=== PATIENT | female | born 1980 | race Caucasian/White ===

== ENCOUNTER 2020-08-24 09:23 | Emergency (ER) | payer OTHER ==
[~2020-08-24] VITALS: Ht 167.6 cm; Wt 80.0 kg
[2020-08-24 09:37] VITALS: BP 121/96
--- NOTE | 2020-08-24 09:55 | PHYS DOC ---
Past History Past Medical History: Asthma, Other Additional Past Medical Histor: seasonal allergies Past Surgical History: Cholecystectomy, , Hysterectomy, Other Additional Past Surgical Histo: bariatric surgery Alcohol Use: Rarely General Adult EDM: Chief Complaint: WRIST PAIN HPI: HPI: 40-year-old female presents with right wrist pain. The patient was working at the [employer] when a 35 pound box shifted and fell onto her right wrist and proximal thumb. She has pain in that area at this time. She denies decreased sensation. She has no other injuries or complaints at this time. Review of Systems: Review of Systems: Constitutional: Denies fever or chills Eyes: Denies change in visual acuity HENT: Denies nasal congestion or sore throat Respiratory: Denies cough or shortness of breath Cardiovascular: Denies chest pain or edema GI: Denies abdominal pain, nausea, vomiting, bloody stools or diarrhea : Denies dysuria Musculoskeletal: Denies back pain or joint pain Integument: Denies rash Neurologic: Denies headache, focal weakness or sensory changes Endocrine: Denies polyuria or polydipsia Lymphatic: Denies swollen glands Psychiatric: Denies depression or anxiety Allergies: Allergies: Allergies Coded Allergies Type Severity Reaction Last Updated Verified aspirin Allergy Unknown 08/24/20 Yes iodine Allergy Unknown 08/24/20 Yes Physical Exam: PE: Constitutional: Well developed, well nourished, no acute distress, non-toxic appearance. [] HENT: Normocephalic, atraumatic, bilateral external ears normal, oropharynx moist, no oral exudates, nose normal. [] Eyes: PERRLA, EOMI, conjunctiva normal, no discharge. [] Neck: Normal range of motion, no tenderness, supple, no stridor. [] Cardiovascular:Heart rate regular rhythm, no murmur [] Lungs & Thorax: Bilateral breath sounds clear to auscultation [] Abdomen: Bowel sounds normal, soft, no tenderness, no masses, no pulsatile masses. [] Skin: Warm, dry, no erythema, no rash. [] Back: No tenderness, no CVA tenderness. [] Extremities: No tenderness, no cyanosis, no clubbing, ROM intact, no edema. [] Neurologic: Alert and oriented X 3, normal motor function, normal sensory function, no focal deficits noted. [] Psychologic: Affect normal, judgement normal, mood normal. [] Current Patient Data: Vital Signs: Vital Signs Date Time Temp Pulse Resp B/P (MAP) Pulse Ox O2 Delivery O2 Flow Rate FiO2 08/24/20 09:37 97.7 66 16 121/96 (104) 100 Room Air EKG: EKG: [] Radiology/Procedures: Radiology/Procedures: [] Heart Score: C/O Chest Pain: N/A Risk Factors: Risk Factors: DM, Current or recent (<one month) smoker, HTN, HLP, family history of CAD, obesity. Risk Scores: Score 0 - 3: 2.5% MACE over next 6 weeks - Discharge Home Score 4 - 6: 20.3% MACE over next 6 weeks - Admit for Clinical Observation Score 7 - 10: 72.7% MACE over next 6 weeks - Early Invasive Strategies Course & Med Decision Making: Course & Med Decision Making Pertinent Labs and Imaging studies reviewed. (See chart for details) The patient's x-ray is negative for fracture or other acute findings. This appears to be a wrist sprain. The patient is stable for discharge at this time. [] Dragon Disclaimer: Dragon Disclaimer: This electronic medical record was generated, in whole or in part, using a voice recognition dictation system. Departure Departure: Impression: Primary Impression: Unspecified sprain of right wrist, initial encounter Disposition: HOME / SELF CARE / HOMELESS Condition: STABLE Referrals: NON,STAFF (PCP) Patient Instructions: Wrist Sprain with [facility] GUILHERME VILLAFUERTE DO Aug 24, 2020 09:55
--- NOTE | 2020-08-24 10:03 | RAD ---
Three-view right wrist dated 08/24/2020. No comparison available. Clinical data indication: Pain after injury. FINDINGS: 3 views the right wrist show normal bony alignment. No displaced fracture. No acute osseous or articu lar abnormality. No periostitis or bone destruction. IMPRESSION: No acute findings. Electronically signed by: Saad Chavira MD (08/24/2020 10:00 AM) JENN[facility]ER
== END 2020-08-24 10:45 | disposition home or self-care (01) ==
LOC: ER 09:23
DX: S63.501A Unspecified sprain of right wrist, initial encounter (principal); J45.909 Unspecified asthma, uncomplicated; Z90.49 Acquired absence of other specified parts of digestive tract; Z90.710 Acquired absence of both cervix and uterus; Z88.6 Allergy status to analgesic agent; W18.09XA Striking against other object with subsequent fall, initial encounter; Y93.89 Activity, other specified; Y92.89 Other specified places as the place of occurrence of the external cause; Y99.8 Other external cause status
CPT/HCPCS: 29125; 73110; 99283-25

== ENCOUNTER 2020-12-19 16:20 | Emergency (ER) | payer OTHER ==
[~2020-12-19] VITALS: Ht 167.6 cm; Wt 81.0 kg
[2020-12-19 16:25] VITALS: BP 97/57
[2020-12-19] MEDS ORDERED: FAMOTIDINE 20 MG/2 ML VIAL IVP ONE (16:45)
[2020-12-19 16:57] LABS: BASO % 0 % (0-3); EOS % 1 % (0-3); HEMATOCRIT 37.8 % (36.0-47.0); HEMOGLOBIN 13.1 g/dL (12.0-15.5); LYMPH # 1.2 x10^3/uL (1.0-4.8); LYMPH % 40 % (24-48); MEAN CORPUSCULAR HEMOGLOBIN 31 pg (25-35); MEAN CORPUSCULAR HGB CONC 35 g/dL (31-37); MEAN CORPUSCULAR VOLUME 91 fL (79-100); MONO # 0.4 x10^3/uL (0.0-1.1); MONO % 14 % (0-9); NEUT # 1.4 x10^3uL (1.8-7.7); NEUT % 45 % (31-73); PLATELET COUNT 156 x10^3/uL (140-400); RED BLOOD COUNT 4.17 x10^6/uL (3.50-5.40); RED CELL DISTRIBUTION WIDTH 12.2 % (11.5-14.5); WHITE BLOOD COUNT 3.1 x10^3/uL (4.0-11.0)
--- NOTE | 2020-12-19 16:57 | PHYS DOC ---
Past History Past Medical History: Asthma, Other Additional Past Medical Histor: seasonal allergies Past Surgical History: Cholecystectomy, , Hysterectomy, Other Additional Past Surgical Histo: bariatric surgery Alcohol Use: Rarely General Adult EDM: Chief Complaint: CHEST PAIN HPI: HPI: Patient is a [age] year old [sex] who presents with [] Review of Systems: Review of Systems: Constitutional: Denies fever or chills Eyes: Denies redness or eye pain HENT: Denies nasal congestion or sore throat Respiratory: Denies cough or shortness of breath Cardiovascular: Denies chest pain or palpitations GI: Denies abdominal pain, nausea, or vomiting : Denies dysuria or hematuria Musculoskeletal: Denies back pain or joint pain Integument: Denies rash or skin lesions Neurologic: Denies headache, focal weakness or sensory changes Complete systems were reviewed and found to be within normal limits, except as documented in this note. Current Medications: Current Meds: Current Medications Medications (Trade) Dose Ordered Sig/Ramona Start Time Stop Time Status Last Admin Dose Admin Dexamethasone Sodium Phosphate (Decadron) 10 mg 1X ONCE 12/19/20 16:45 12/19/20 16:48 DC Diphenhydramine HCl (Benadryl) 50 mg 1X ONCE 12/19/20 16:45 12/19/20 16:48 DC Famotidine (Pepcid Vial) 20 mg 1X ONCE 12/19/20 16:45 12/19/20 16:48 DC Info (Do NOT chart on this entry -- for MONITORING) 1 each PRN DAILY PRN 12/19/20 17:00 12/21/20 16:59 Iohexol (Omnipaque 350 Mg/ml) 100 ml 1X ONCE 12/19/20 17:00 12/19/20 17:01 Ketorolac Tromethamine (Toradol 15mg Vial) 15 mg 1X ONCE 12/19/20 16:45 12/19/20 16:46 DC Ondansetron HCl (Zofran) 4 mg 1X ONCE 12/19/20 16:45 12/19/20 16:46 DC Sodium Chloride 1,000 ml @ 1,000 mls/hr Q1H 12/19/20 16:45 12/19/20 17:44 Allergies: Allergies: Allergies Coded Allergies Type Severity Reaction Last Updated Verified aspirin Allergy Unknown 08/24/20 Yes iodine Allergy Unknown Hives 12/19/20 Yes Physical Exam: PE: Constitutional: Well developed, well nourished, no acute distress, non-toxic appearance HENT: Normocephalic, atraumatic Eyes: PERRL, EOMI, conjunctiva normal, no discharge Neck: Normal range of motion, no tenderness, supple Lungs & Thorax: No respiratory distress, equal chest rise and fall Abdomen: Soft, no tenderness Skin: Warm, dry, no erythema, no rash Back: No tenderness, no CVA tenderness Extremities: No tenderness, ROM intact, no edema Neurologic: Alert and oriented X 3, normal motor function, normal sensory function, no focal deficits noted Psychologic: Affect normal, judgment normal Current Patient Data: Vital Signs: Vital Signs Date Time Temp Pulse Resp B/P (MAP) Pulse Ox O2 Delivery O2 Flow Rate FiO2 12/19/20 16:25 98.4 77 24 97/57 (70) 97 EKG: EKG: @1626 NSR at 73bpm, NO ST elevation, QRS 88ms, QT/QTc 378/420ms @1749 Sinus bradycardia at 56bpm, NO ST elevation, QRS 94ms, QT/QTc 424/412ms Radiology/Procedures: Radiology/Procedures: PROCEDURE: CT ANGIO CHEST W ABD PEL W/ Study: CT angiography of the chest. CT abdomen/pelvis with contrast Indication: Shortness of air. Abdominal pain. Nausea and vomiting. Comparison: None. Technique: Helical CT imaging performed of the chest, abdomen and pelvis after the intravenous administration of 100 cc Omnipaque 350 contrast. Sagittal and coronal 3D MIP reconstructions were obtained of the chest per angiography protocol. One or more of the following individualized dose reduction techniques were utilized for this examination: 1. Automated exposure control 2. Adjustment of the mA and/or kV according to patient size 3. Use of iterative reconstruction technique. Findings: Chest: No main, lobar or segmental pulmonary embolism. Main pulmonary artery caliber is within normal limits. No aortic aneurysm or dissection. No CT manifestations of right heart strain. Nonmasslike with the soft tissue density at the anterior mediastinum with intermixed fat most consistent with residual or rebound thymic tissue. No lymphadenopathy by size criteria. Normal volume pericardial fluid. Mild atelectasis. No consolidation. A few small pulmonary nodules such as right middle lobe on image 93 series 5 measuring 3.5 mm and abutting the right major fissure on image 66 series 5 measuring 3 mm. Pleural-based nodular focus posteriorly at the right lower lobe, image 16 series 5, measuring 4 mm. Patent central airways. No pleural effusion. Unremarkable thyroid and axilla. No acute or aggressive osseous process. Abdomen/pelvis: The liver is within normal limits. Shabana configuration of the right hepatic lobe. Absent gallbladder. Nondilated biliary tree. Unremarkable pancreas and adrenal glands. Mild enlargement of the spleen measuring just over 13 cm AP. Symmetric renal parenchymal enhancement. Nondilated collecting system. Bladder wall thickness is within normal limits. No significant abnormality of the reproductive organs considering patient age and presumed premenopausal state. Small amount of free pelvic fluid measuring simple density is typically physiologic. Mild volume well-formed stool within the distal colon. There is some incompletely formed stool within the colon more proximally. The appendix is normal, image 113 series 9. A few segments of small bowel are mildly prominent measuring around 3 cm such as at the left upper quadrant on image 48 series 9, but there is no significant wall thickening or transitioning to collapse. No pneumatosis. Sequela of bariatric surgery. No complication is identified. Likely the bowel is partially assessed without positive oral contrast. Patent central portal veins and superior mesenteric vein. Nonaneurysmal aorta. No lymphadenopathy. No pneumoperitoneum. Mild arthrosis at the hips and involving the lower lumbar facet joints. Impression: 1. No pulmonary embolism or other acute abnormality throughout the chest. 2. No acute abnormality seen below the diaphragm. 3. A few small pulmonary nodules measuring 4 mm or less. Per Fleischner guidelines, no dedicated follow-up is needed unless otherwise clinically indicated. 4. Mild prominence of the spleen. 5. Small amount of free fluid measuring simple density within the pelvis typically physiologic given patient age. No significant CT finding of the reproductive organs. Electronically signed by: TAJ LÓPEZ MD (12/19/2020 6:16 PM) [facility] Heart Score: C/O Chest Pain: Yes HEART Score for Chest Pain: HEART Score for Chest Pain Response (Comments) Value History Slighlty/Non-Suspicious 0 ECG Normal 0 Age < 45 0 Risk Factors No Risk Factors 0 Troponin < Normal Limit 0 Total 0 Risk Factors: Risk Factors: DM, Current or recent (<one month) smoker, HTN, HLP, family history of CAD, obesity. Risk Scores: Score 0 - 3: 2.5% MACE over next 6 weeks - Discharge Home Score 4 - 6: 20.3% MACE over next 6 weeks - Admit for Clinical Observation Score 7 - 10: 72.7% MACE over next 6 weeks - Early Invasive Strategies Course & Med Decision Making: Course & Med Decision Making Pertinent Labs and Imaging studies reviewed. (See chart for details) [] Dragon Disclaimer: Dragon Disclaimer: This electronic medical record was generated, in whole or in part, using a voice recognition dictation system. Departure Departure: Impression: Primary Impression: Chest pain Qualified Codes: R07.9 - Chest pain, unspecified Additional Impressions: Nausea & vomiting Qualified Codes: R11.2 - Nausea with vomiting, unspecified History of COVID-19 Incidental pulmonary nodule Disposition: HOME / SELF CARE / HOMELESS Condition: STABLE Referrals: BEATRIS KING DO (PCP) Patient Instructions: Chest Pain (Nonspecific), [id number], Clear Liquid Diet, [id number], Nausea and Vomiting, [id number], Pulmonary Nodule, Easy- to-Read Additional Instructions: Increase hydration. Give CT report to PCP for future re-evaluation of your pulmonary nodules. Scripts Hyoscyamine Sulfate (LEVSIN-SL) 0.125 Mg Tab.subl 0.125 MG SL Q4-6HRS PRN for PAIN, #14 TAB Prov: ERICKA SANTIAGO DO 12/19/20 Prednisone (PREDNISONE) 20 Mg Tablet 1 TAB PO DAILY for Allergen, #8 TAB Start this medication tomorrow, 12/20/20 Prov: ERICKA SANTIAGO DO 12/19/20 Famotidine (PEPCID) 20 Mg Tablet 1 TAB PO BID for Gastritis, #10 TAB Prov: ERICKA SANTIAGO DO 12/19/20 Ondansetron (ONDANSETRON ODT) 4 Mg Tab.rapdis 1 TAB PO PRN Q6-8HRS PRN for NAUSEA, #16 TAB Prov: ERICKA SANTIAGO DO 12/19/20 ERICKA SANTIAGO DO Dec 19, 2020 16:56
[2020-12-19] MEDS ORDERED: CONTRAST GIVEN. MC PRN (17:00)
[2020-12-19] MEDS: IV NORMAL SALINE 1,000ML 1,000 ML IV SCH (17:02)
[2020-12-19] MEDS: ONDANSETRON PF 4 MG/2 ML VIAL. IVP ONE (17:06)
[2020-12-19 17:08] LABS: CREATININE 0.7 mg/dL (0.6-1.0); GFR 92.7; POTASSIUM 3.5 mmol/L (3.5-5.1)
[2020-12-19] MEDS: KETOROLAC 15 MG/ML VIAL. IVP ONE (17:08)
[2020-12-19] MEDS: diphenhydrAMINE 50 MG/ML VIAL IVP ONE (17:11)
[2020-12-19] MEDS: FAMOTIDINE 20 MG/2 ML VIAL IVP ONE (17:15)
[2020-12-19] MEDS: DEXAMETHASONE SOD PHOS 10 MG/ML VIAL. IVP ONE (17:15)
[2020-12-19 17:24] LABS: ALBUMIN 3.9 g/dL (3.4-5.0); ALBUMIN/GLOBULIN RATIO 1.1 (1.0-1.7); TOTAL PROTEIN 7.3 g/dL (6.4-8.2)
[2020-12-19] MEDS: IOHEXOL 350 MG/ML 100 ML VIAL. IV ONE (17:30)
--- NOTE | 2020-12-19 18:19 | RAD ---
Study: CT angiography of the chest. CT abdomen/pelvis with contrast Indication: Shortness of air. Abdominal pain. Nausea and vomiting. Comparison: None. Technique: Helical CT imaging performed of the chest, abdomen and pelvis after the intravenous admini stration of 100 cc Omnipaque 350 contrast. Sagittal and coronal 3D MIP reconstructions were obtained of the chest per angiography protocol. One or more of the following individualized dose reduction techniques were utilized for this examinat ion: 1. Automated exposure control 2. Adjustment of the mA and/or kV according to patient size 3. Use of iterative reconstruction technique. Findings: Chest: No main, lobar or segmental pulmonary embolism. Main pulmonary artery caliber is within normal limits . No aortic aneurysm or dissection. No CT manifestations of right heart strain. Nonmasslike with the soft tissue density at the anterior mediastinum with intermixed fat most consist ent with residual or rebound thymic tissue. No lymphadenopathy by size criteria. Normal volume perica rdial fluid. Mild atelectasis. No consolidation. A few small pulmonary nodules such as right middle lobe on image 93 series 5 measuring 3.5 mm and abutting the right major fissure on image 66 series 5 measuring 3 mm . Pleural-based nodular focus posteriorly at the right lower lobe, image 16 series 5, measuring 4 mm. Patent central airways. No pleural effusion. Unremarkable thyroid and axilla. No acute or aggressive osseous process. Abdomen/pelvis: The liver is within normal limits. Shabana configuration of the right hepatic lobe. Absent gallbladder . Nondilated biliary tree. Unremarkable pancreas and adrenal glands. Mild enlargement of the spleen m easuring just over 13 cm AP. Symmetric renal parenchymal enhancement. Nondilated collecting system. B ladder wall thickness is within normal limits. No significant abnormality of the reproductive organs considering patient age and presumed premenopausal state. Small amount of free pelvic fluid measuring simple density is typically physiologic. Mild volume well-formed stool within the distal colon. There is some incompletely formed stool within the colon more proximally. The appendix is normal, image 113 series 9. A few segments of small bowel are mildly prominent measuring around 3 cm such as at the left upper quadrant on image 48 series 9, but there is no significant wall thickening or transitioning to collapse. No pneumatosis. Sequela of bariatric surgery. No complication is identified. Likely the bowel is partially assessed w ithout positive oral contrast. Patent central portal veins and superior mesenteric vein. Nonaneurysmal aorta. No lymphadenopathy. No pneumoperitoneum. Mild arthrosis at the hips and involving the lower lumbar facet joints. Impression: 1. No pulmonary embolism or other acute abnormality throughout the chest. 2. No acute abnormality seen below the diaphragm. 3. A few small pulmonary nodules measuring 4 mm or less. Per Fleischner guidelines, no dedicated fol low-up is needed unless otherwise clinically indicated. 4. Mild prominence of the spleen. 5. Small amount of free fluid measuring simple density within the pelvis typically physiologic given patient age. No significant CT finding of the reproductive organs. Electronically signed by: TAJ LÓPEZ MD (12/19/2020 6:16 PM) [facility]
[2020-12-19] MEDS ORDERED: FAMO-63 PO (19:07)
[2020-12-19] MEDS ORDERED: PRED20TA PO (19:07)
[2020-12-19] MEDS ORDERED: ONDA4TAB12 PO (19:07)
[2020-12-19] MEDS ORDERED: HYOS0.1265 SL (19:07)
--- NOTE | 2020-12-19 19:18 | EKG ---
[address] [address] Test Date: 2020-12-19 Test Time: 16:26:36 Pat Name: KRISTI TAVERAS Department: Room: Gender: F [employer] Supervisor: JENNIE : 1980 Requested By: ERICKA SANTIAGO Order Number: [id number] Reading MD: Measurements Intervals [place] Rate: 73 P: 69 RI: 144 QRS: 24 QRSD: 88 T: 76 QT: 378 QTc: 420 Interpretive Statements SINUS RHYTHM LOW LIMB LEAD VOLTAGE T ABNORMALITY IN HIGH LATERAL LEADS ABNORMAL ECG RI6.02 No previous ECG available for comparison
--- NOTE | 2020-12-19 19:23 | EKG ---
[address] [address] Test Date: 2020-12-19 Test Time: 17:49:28 Pat Name: KRISTI TAVERAS Department: Room: Gender: F Qa Tester: JENNIE : 1980 Requested By: ERICKA SANTIAGO Order Number: [id number] Reading MD: Measurements Intervals [place] Rate: 56 P: 56 TX: 144 QRS: 26 QRSD: 94 T: 74 QT: 424 QTc: 412 Interpretive Statements SINUS RHYTHM LOW LIMB LEAD VOLTAGE NO SPECIFIC ECG ABNORMALITIES RI6.02 No previous ECG available for comparison
[2020-12-19 20:04] LABS: BILIRUBIN,URINE NEG (NEG); CLARITY,URINE CLEAR; COLOR,URINE YELLOW; GLUCOSE,URINE NEG (NEG); NITRITE,URINE NEG (NEG); RBC,URINE 0 /HPF (0-2); UROBILINOGEN,URINE 0.2 mg/dL (0.2 mg/dL)
[2020-12-19 20:05] LABS: BACTERIA,URINE 0 /HPF (0-FEW); SQUAMOUS EPITHELIAL CELL,UR OCC /LPF
== END 2020-12-19 19:48 | disposition home or self-care (01) ==
LOC: ER 16:20
DX: R07.9 Chest pain, unspecified (principal); R11.2 Nausea with vomiting, unspecified; R91.1 Solitary pulmonary nodule; J45.909 Unspecified asthma, uncomplicated; Z86.16 Personal history of COVID-19; Z88.6 Allergy status to analgesic agent; Z88.8 Allergy status to other drugs, medicaments and biological substances
CPT/HCPCS: 36415; 71275; 74177; 80053; 81001; 82553; 83605; 83690; 83735; 84484; 85025; 93005; 96361; 96374; 96375; 99285; J1100; J1200; J1885; J2405; J3490; J7030; Q9967

== ENCOUNTER 2021-02-27 23:41 | Emergency (ER) | payer OTHER ==
[~2021-02-27] VITALS: Ht 167.6 cm; Wt 80.9 kg
[~2021-02-27 23:41] MED LIST: FAMO-63 PO; HYOS0.1265 SL; ONDA4TAB12 PO; PRED20TA PO
[2021-02-28] MEDS ORDERED: IV NORMAL SALINE 1,000ML 1,000 ML IV ONE (00:15)
[2021-02-28] MEDS ORDERED: ORPHENADRINE CITRATE 60 MG/2 ML VIAL. IV ONE (00:15)
--- NOTE | 2021-02-28 00:33 | PHYS DOC ---
Past History Past Medical History: Asthma, Other Additional Past Medical Histor: seasonal allergies, COVID 12/11 Past Surgical History: Cholecystectomy, , Hysterectomy, Other Additional Past Surgical Histo: bariatric surgery Smoking: Non-smoker Alcohol Use: Rarely Drug Use: None Social History Narrative: Noncontributory General Adult EDM: Chief Complaint: MULTIPLE COMPLAINTS HPI: HPI: Patient is a 40-year-old female who presents to the emergency department via triage with a chief complaint of right arm pain for the past 4 days. Patient reports associated right arm swelling as well as right arm weakness and numbne ss. Patient first noticed this pain after she got done with work a few days ago. It was stable in presentation until tonight when pain worsened which drove her to present to the emergency department. The pain radiates up her arm, to her right chest wall, and to the proximal right thigh. patient denies any recent traumas. The pain is worse with moving her neck. Patient reports having COVID in November and "never fully recovering". Patient denies being on estrogen hormone replacement therapy. Denies personal history of blood clots. Endorses family history of blood clots in her mother who had a DVT in her lower extremity. Review of Systems: Review of Systems: Constitutional: Denies fever or chills Eyes: Denies redness or eye pain HENT: Denies nasal congestion or sore throat Respiratory: Denies cough or shortness of breath; reports right-sided chest pain on inspiration Cardiovascular: Denies dyspnea on exertion or palpitations GI: Denies abdominal pain, nausea, or vomiting : Denies dysuria or hematuria Musculoskeletal: Denies back pain; reports RUE pain and right sided paresthesias Integument: Denies rash or skin lesions Neurologic: Denies headaches; reports right arm weakness and sensory changes Complete systems were reviewed and found to be within normal limits, except as documented in this note. Family History: Family History: Patient's mother with a history of lower extremity DVT Allergies: Allergies: Allergies Coded Allergies Type Severity Reaction Last Updated Verified aspirin Allergy Unknown 12/19/20 Yes iodine Allergy Unknown Hives 12/19/20 Yes Physical Exam: PE: Constitutional: Well developed, well nourished, no acute distress, non-toxic appearance, sitting comfortably in hallway chair HENT: Normocephalic, atraumatic Eyes: PERRL, EOMI, conjunctiva normal, no discharge Neck: Normal range of motion, no tenderness, supple, no JVD, trachea midline Lungs & Thorax: No respiratory distress, normal chest wall excursion bilaterally, lung sounds clear to auscultation bilaterally, +2 peripheral pulses bilaterally, regular rate and rhythm, Abdomen: Soft, no tenderness Skin: Warm, dry, no erythema, no rash Back: No tenderness, no CVA tenderness Extremities: Patient with normal range of motion in bilateral upper extremities, no erythema appreciated nor swelling appreciated in the bilateral upper extremities, Neurologic: Alert and oriented X 3, normal motor function, patient with 4/5 strength on right forearm flexion and extension. Remainder of right upper extremity motion has 5/5 strength grossly. The patient's left upper extremity has 5/5 strength grossly as well as her bilateral lower extremities. Patient's right arm pain is worsened by neck rotation to the right. She reports mild numbness and sensory changes on her right arm which feels different from sensations on her left arm. Psychologic: Affect normal, judgment normal EKG: EKG: EKG taken at 00:26 hours. Sinus Bradycardia at a rate of 55bmp, [place] interval 150ms, QRS interval 90ms, QT/QTc 422 / 406ms. No ST segment deviations, no T- wave abnormalities. No evidence of acute ischemic changes. Radiology/Procedures: Radiology/Procedures: PROCEDURE: PORTABLE CHEST 1V INDICATION: Reason: pleuritic chest pain / Spl. Instructions: / History: COMPARISON: November 2020 FINDINGS: Single view of chest obtained. No focal airspace consolidation. Cardiomediastinal contour unremarkable. No acute osseous abnormality. IMPRESSION: * No focal airspace consolidation or edema. Electronically signed by: Jossue Velazquez MD (02/28/2021 12:41 AM) DESKTOP- [id number] PROCEDURE: CT HEAD AND CERVICAL SPINE WO INDICATION: Reason: right arm parasthesias/pain, neck pain / Spl. Instructions: / History: COMPARISON: None. TECHNIQUE: Axial CT images obtained through the head and cervical spine without intravenous contrast. Coronal and sagittal reformats processed of cervical spine. One or more of the following individualized dose reduction techniques were utilized for this examination: 1. Automated exposure control; 2. Adjustment of the mA and/or kV according to patient size; 3. Use of iterative reconstruction technique. FINDINGS: Head: No intracranial hemorrhage. No midline shift. Basal cisterns patents. Ventricles and sulci are within normal limits. No acute osseous abnormality. Orbits and paranasal sinuses unremarkable. Cervical: No definite acute fracture. No dislocation. No evidence of perivertebral hematoma. There are some mild degenerative changes of the cervical spine with small disc protrusions and osteophyte formation. No high-grade central canal stenosis or high-grade neural foraminal stenosis. IMPRESSION: * No acute intracranial hemorrhage. * No acute fracture or dislocation of the cervical spine. Electronically signed by: Jossue Velazquez MD (02/28/2021 1:22 AM) [id number] Heart Score: C/O Chest Pain: N/A Course & Med Decision Making: Course & Med Decision Making Pertinent Labs and Imaging studies reviewed. (See chart for details) Patient is a 40-year-old female who presents to the emergency department triage with a chief complaint of multiday history of right-sided arm pain and perceived swelling. Patient reports having COVID in November. Denies personal history of blood clots but does report that her mother had a lower extremity DVT when the patient was a child. She denies being on hormone replacement therapy, is not currently taking any OCPs. Review of systems was significant for pleuritic chest pain as well as reported mild sensory changes. Plan for blood work, EKG, CXR, CT Head, continuous cardiac monitoring while in the ED. NIH stroke scale score of 1due to mild sensory changes. Patient reports allergy to aspirin and all NSAIDs which cause her wheezing. Patient additionally reports an allergy to iodine which causes itching. CT head without acute process. Chest x-ray stable. EKG normal. Labs obtained and posted to chart. Troponin WNL. D-dimer negative. Pain addressed with some improvement. Concern for nerve issue in RUE such as cervical radiculopathy. Unable to account for right chest wall pain and right leg pain and numbness. Discussed case with Dr. Velez (hospitalist) regarding abnormal neurologic presentation. Dr. Velez declines admission at this time and recommends close outpatient follow up with PCP and/or neurology. Discussed plan for discharge with patient and family. Advised if symptoms persist to present to facility with MRI capability. Neurology referral provided. Patient and spouse acknowledge understanding and agreement. Ras Disclaimer: Ras Disclaimer: This electronic medical record was generated, in whole or in part, using a voice recognition dictation system. Departure Departure: Impression: Primary Impression: Paresthesia Disposition: HOME / SELF CARE / HOMELESS Condition: STABLE Referrals: BEATRIS KING DO (PCP) NAEEM TRUONG MD Patient Instructions: Cervical Radiculopathy, [id number], Paresthesia, [id number] Additional Instructions: Follow closely with your doctor for further evaluation and treatment. Scripts Tramadol Hcl (TRAMADOL HCL) 50 Mg Tablet 50 MG PO PRN Q6HRS PRN for PAIN, #14 TAB Take each tablet with one (1) regular strength Tylenol 325mg Prov: ERICKA SANTIAGO DO 02/28/21 Orphenadrine Citrate (ORPHENADRINE CITRATE) 100 Mg Tablet.er 1 TAB PO BID PRN for MUSCLE PAIN, #14 TAB 0 Refills Prov: ERICKA SANTIAGO DO 02/28/21 NIHSS - ED NIH Stroke Scale: NIH Stroke Scale Response (Comments) Value Level of Consciousness: 0 Alert/Responsive 0 LOC Questions: 0 Answers both correctly 0 LOC Commands: 0 Performs both tasks 0 Best Gaze: 0 Normal 0 Visual: 0 No visual loss 0 Facial Palsy: 0 Normal, symmetrical 0 Motor - Left Arm 0 No drift 0 Motor - Right Arm 0 No drift 0 Motor - Left Leg 0 No drift 0 Motor: Right Leg 0 No drift 0 Limb Ataxia: 0 Absent 0 Sensory: 1 Mid to moderate loss 1 Best Language: 0 Normal 0 Dysathria: 0 Normal 0 Extinction and Inattention: 0 Normal 0 Total 1 ERICKA SANTIAGO DO Feb 28, 2021 00:33
--- NOTE | 2021-02-28 00:38 | EKG ---
[address] [address] Test Date: 2021-02-28 Test Time: 00:26:29 Pat Name: KRISTI TAVERAS Department: Room: Gender: F Communications Equipment Operator: : 1980 Requested By: ERICKA SANTIAGO Order Number: [id number] Reading MD: Hermann Richard Measurements Intervals [place] Rate: 55 P: 60 TX: 150 QRS: 28 QRSD: 90 T: 62 QT: 422 QTc: 406 Interpretive Statements SINUS RHYTHM Electronically Signed On 02-28-2021 12:32:20 DATA WAREHOUSE ARCHITECT by Hermann Richard
--- NOTE | 2021-02-28 00:43 | RAD ---
INDICATION: Reason: pleuritic chest pain / Spl. Instructions: / History: COMPARISON: November 2020 FINDINGS: Single view of chest obtained. No focal airspace consolidation. Cardiomediastinal contour unremarkable. No acute osseous abnormality. IMPRESSION: * No focal airspace consolidation or edema. Electronically signed by: Jossue Velazquez MD (02/28/2021 12:41 AM) [id number]
[2021-02-28 01:13] LABS: CALCIUM 9.5 mg/dL (8.5-10.1); CREATININE 0.8 mg/dL (0.6-1.0); GFR 79.4; POTASSIUM 4.1 mmol/L (3.5-5.1)
[2021-02-28 01:16] LABS: BASO % 1 % (0-3); EOS # 0.1 x10^3/uL (0.0-0.7); EOS % 2 % (0-3); HEMATOCRIT 39.6 % (36.0-47.0); HEMOGLOBIN 13.6 g/dL (12.0-15.5); LYMPH # 3.1 x10^3/uL (1.0-4.8); LYMPH % 58 % (24-48); MEAN CORPUSCULAR HEMOGLOBIN 31 pg (25-35); MEAN CORPUSCULAR HGB CONC 34 g/dL (31-37); MEAN CORPUSCULAR VOLUME 90 fL (79-100); MONO # 0.4 x10^3/uL (0.0-1.1); MONO % 8 % (0-9); NEUT # 1.7 x10^3uL (1.8-7.7); NEUT % 32 % (31-73); PLATELET COUNT 261 x10^3/uL (140-400); RED BLOOD COUNT 4.39 x10^6/uL (3.50-5.40); RED CELL DISTRIBUTION WIDTH 12.5 % (11.5-14.5); WHITE BLOOD COUNT 5.4 x10^3/uL (4.0-11.0)
--- NOTE | 2021-02-28 01:25 | RAD ---
INDICATION: Reason: right arm parasthesias/pain, neck pain / Spl. Instructions: / History: COMPARISON: None. TECHNIQUE: Axial CT images obtained through the head and cervical spine without intravenous contrast. Coronal a nd sagittal reformats processed of cervical spine. One or more of the following individualized dose reduction techniques were utilized for this examinat ion: 1. Automated exposure control; 2. Adjustment of the mA and/or kV according to patient size; 3 . Use of iterative reconstruction technique. FINDINGS: Head: No intracranial hemorrhage. No midline shift. Basal cisterns patents. Ventricles and sulci are within normal limits. No acute osseous abnormality. Orbits and paranasal sinuses unremarkable. Cervical: No definite acute fracture. No dislocation. No evidence of perivertebral hematoma. There are some mild degenerative changes of the cervical spine with small disc protrusions and osteop hyte formation. No high-grade central canal stenosis or high-grade neural foraminal stenosis. IMPRESSION: * No acute intracranial hemorrhage. * No acute fracture or dislocation of the cervical spine. Electronically signed by: Jossue Velazquez MD (02/28/2021 1:22 AM) [id number]
[2021-02-28 01:30] LABS: ALBUMIN 4.5 g/dL (3.4-5.0); ALBUMIN/GLOBULIN RATIO 1.4 (1.0-1.7); MAGNESIUM 2.2 mg/dL (1.8-2.4); TOTAL BILIRUBIN 0.5 mg/dL (0.2-1.0); TOTAL PROTEIN 7.7 g/dL (6.4-8.2)
[2021-02-28 01:57] LABS: BACTERIA,URINE FEW /HPF (0-FEW); BILIRUBIN,URINE NEG (NEG); CLARITY,URINE CLEAR; COLOR,URINE YELLOW; GLUCOSE,URINE NEG (NEG); NITRITE,URINE NEG (NEG); SQUAMOUS EPITHELIAL CELL,UR FEW /LPF; UROBILINOGEN,URINE 0.2 mg/dL (0.2 mg/dL)
[2021-02-28] MEDS ORDERED: TRAM50TA PO (02:09)
[2021-02-28] MEDS ORDERED: ORPH-16 PO (02:09)
[2021-02-28 02:30] VITALS: BP 102/68
== END 2021-02-28 02:30 | disposition home or self-care (01) ==
LOC: ER 23:41
DX: R20.2 Paresthesia of skin (principal); M79.601 Pain in right arm; R22.31 Localized swelling, mass and lump, right upper limb; R53.1 Weakness; J45.909 Unspecified asthma, uncomplicated; Z88.6 Allergy status to analgesic agent; Z88.8 Allergy status to other drugs, medicaments and biological substances
CPT/HCPCS: 36415; 70450; 71045; 72125; 80053; 81001; 82553; 83605; 83735; 83880; 84484; 85025; 85379; 85610; 85730; 93005; 96361; 96374; 96375; 99285; J2360; J3010; J7030

== ENCOUNTER 2021-08-02 10:26 | Emergency (ER) | payer OTHER ==
[~2021-08-02] VITALS: Ht 167.6 cm; Wt 87.1 kg
[~2021-08-02 10:26] MED LIST changes: +ORPH-16 PO; +TRAM50TA PO
[2021-08-02] MEDS ORDERED: IV NORMAL SALINE 1,000ML 1,000 ML IV ONE (11:00)
[2021-08-02 11:31] LABS: BASO % 1 % (0-3); EOS % 1 % (0-3); HEMOGLOBIN 12.1 g/dL (12.0-15.5); LYMPH % 50 % (24-48); MEAN CORPUSCULAR HEMOGLOBIN 31 pg (25-35); MEAN CORPUSCULAR HGB CONC 35 g/dL (31-37); MEAN CORPUSCULAR VOLUME 90 fL (79-100); MONO # 0.4 x10^3/uL (0.0-1.1); MONO % 9 % (0-9); NEUT # 1.6 x10^3uL (1.8-7.7); NEUT % 40 % (31-73); PLATELET COUNT 219 x10^3/uL (140-400); RED CELL DISTRIBUTION WIDTH 12.3 % (11.5-14.5)
--- NOTE | 2021-08-02 11:40 | RAD ---
EXAM: Chest, single view. HISTORY: Dizziness. Palpitations. COMPARISON: 02/28/2021 FINDINGS: A frontal view of the chest is obtained. There is no infiltrate, pleural effusion or pneumo thorax. The heart is normal in size. IMPRESSION: No acute pulmonary finding. Electronically signed by: Shi Sky MD (08/02/2021 11:38 AM) [id number]
--- NOTE | 2021-08-02 11:50 | PHYS DOC ---
Past History Past Medical History: Asthma, Other Additional Past Medical Histor: seasonal allergies, COVID 12/11 Past Surgical History: Cholecystectomy, , Hysterectomy, Other Additional Past Surgical Histo: bariatric surgery, left ankle Smoking: Non-smoker Alcohol Use: Rarely Drug Use: None Adult General Chief Complaint Chief Complaint: DIZZY/LIGHT HEADED HPI HPI Patient is a 41 year old female who presents with complaint of intermittent dizziness and lightheadedness. The patient states that her symptoms have been present over the past 2 to 3 days. Notes that she has been feeling very dizzy and lightheaded upon standing. She states that she also feels her heart rate go up when this happens. Denies full loss of consciousness and notes that symptoms typically resolve when she is lying down. Does note increased fatigue during that time. Denies fevers, vomiting, or diarrhea. The patient states that she has not had any associated chest pain or unilateral weakness with symptoms. Denies previous history of any known cardiac illness. Review of Systems Review of Systems Constitutional: Fatigue, denies fever or chills [] Eyes: Denies change in visual acuity, redness, or eye pain [] HENT: Denies nasal congestion or sore throat [] Respiratory: Denies cough or shortness of breath [] Cardiovascular: Denies chest pain or edema [] GI: Nausea, denies abdominal pain, vomiting, bloody stools or diarrhea [] : Denies dysuria or hematuria [] Musculoskeletal: Denies back pain or joint pain [] Integument: Denies rash or skin lesions [] Neurologic: Lightheadedness, dizziness, denies focal weakness or sensory changes [] All other systems were reviewed and found to be within normal limits, except as documented in this note. Current Medications Current Medications Current Medications Medications (Trade) Dose Ordered Sig/Ramona Start Time Stop Time Status Last Admin Dose Admin Sodium Chloride 1,000 ml @ 1,000 mls/hr 1X ONCE 08/02/21 11:00 08/02/21 11:59 08/02/21 11:00 1,000 MLS/HR Allergies Allergies Allergies Coded Allergies Type Severity Reaction Last Updated Verified aspirin Allergy Unknown 12/19/20 Yes ibuprofen Allergy Unknown 08/02/21 Yes iodine Allergy Unknown Hives 12/19/20 Yes shellfish derived Allergy Unknown 08/02/21 Yes Physical Exam Physical Exam Constitutional: Well developed, well nourished, no acute distress, non-toxic appearance. [] HENT: Normocephalic, atraumatic, bilateral external ears normal, oropharynx moist, no oral exudates, nose normal. [] Eyes: PERRLA, EOMI, conjunctiva normal, no discharge. [] Neck: Normal range of motion, no tenderness, supple, no stridor. [] Cardiovascular:Heart rate regular rhythm, no murmur [] Lungs & Thorax: Bilateral breath sounds clear to auscultation [] Abdomen: Bowel sounds normal, soft, no tenderness, no masses, no pulsatile masses. [] Skin: Warm, dry, no erythema, no rash. [] Back: No tenderness, no CVA tenderness. [] Extremities: No tenderness, no cyanosis, no clubbing, ROM intact, no edema. [] Neurologic: Alert and oriented X 3, normal motor function, normal sensory function, no focal deficits noted. [] Current Patient Data Vital Signs Vital Signs Date Time Temp Pulse Resp B/P (MAP) Pulse Ox O2 Delivery O2 Flow Rate FiO2 08/02/21 10:31 98.7 67 16 137/81 (99) 98 Room Air Lab Results Laboratory Tests Test 08/02/21 10:45 08/02/21 11:00 08/02/21 11:30 08/02/21 12:32 Bedside Urine HCG, Qualitative hcg negative White Blood Count 4.0 x10^3/uL Red Blood Count 3.90 x10^6/uL Hemoglobin 12.1 g/dL Hematocrit 35.0 % Mean Corpuscular Volume 90 fL Mean Corpuscular Hemoglobin 31 pg Mean Corpuscular Hemoglobin Concent 35 g/dL Red Cell Distribution Width 12.3 % Platelet Count 219 x10^3/uL Neutrophils (%) (Auto) 40 % Lymphocytes (%) (Auto) 50 % Monocytes (%) (Auto) 9 % Eosinophils (%) (Auto) 1 % Basophils (%) (Auto) 1 % Neutrophils # (Auto) 1.6 x10^3uL Lymphocytes # (Auto) 2.0 x10^3/uL Monocytes # (Auto) 0.4 x10^3/uL Eosinophils # (Auto) 0.0 x10^3/uL Basophils # (Auto) 0.0 x10^3/uL Sodium Level 139 mmol/L Potassium Level 4.0 mmol/L Chloride Level 101 mmol/L Carbon Dioxide Level 30 mmol/L Anion Gap 8 Blood Urea Nitrogen 10 mg/dL Creatinine 0.7 mg/dL Estimated GFR (Cockcroft-Gault) 92.2 BUN/Creatinine Ratio 14 Glucose Level 81 mg/dL Calcium Level 9.5 mg/dL Magnesium Level 2.0 mg/dL Total Bilirubin 0.4 mg/dL Aspartate Amino Transf (AST/SGOT) 19 U/L Alanine Aminotransferase (ALT/SGPT) 30 U/L Alkaline Phosphatase 63 U/L Total Protein 7.0 g/dL Albumin 3.8 g/dL Albumin/Globulin Ratio 1.2 Urine Collection Type Unknown Urine Color Yellow Urine Clarity Clear Urine pH 7.0 Urine Specific [place] 1.015 Urine Protein Neg Urine Glucose (UA) Neg mg/dL Urine Ketones (Stick) Neg mg/dL Urine Blood Neg Urine Nitrite Neg Urine Bilirubin Neg Urine Urobilinogen Dipstick 0.2 mg/dL Urine Leukocyte Esterase Neg Urine RBC 0 /HPF Urine WBC Occ /HPF Urine Squamous Epithelial Cells Occ /LPF Urine Bacteria 0 /HPF SARS-CoV-2 Antigen (Rapid) Negative Current Medications Medications (Trade) Dose Ordered Sig/Ramona Route PRN Reason Start Time Stop Time Status Last Admin Dose Admin Sodium Chloride 1,000 ml @ 1,000 mls/hr 1X ONCE IV 08/02/21 11:00 08/02/21 11:59 DC 08/02/21 11:00 Laboratory Tests Test 08/02/21 10:45 08/02/21 11:00 POC Urine HCG, Qualitative hcg negative (Negative) White Blood Count 4.0 x10^3/uL (4.0-11.0) Red Blood Count 3.90 x10^6/uL (3.50-5.40) Hemoglobin 12.1 g/dL (12.0-15.5) Hematocrit 35.0 % (36.0-47.0) L Mean Corpuscular Volume 90 fL (79-100) Mean Corpuscular Hemoglobin 31 pg (25-35) Mean Corpuscular Hemoglobin Concent 35 g/dL (31-37) Red Cell Distribution Width 12.3 % (11.5-14.5) Platelet Count 219 x10^3/uL (140-400) Neutrophils (%) (Auto) 40 % (31-73) Lymphocytes (%) (Auto) 50 % (24-48) H Monocytes (%) (Auto) 9 % (0-9) Eosinophils (%) (Auto) 1 % (0-3) Basophils (%) (Auto) 1 % (0-3) Neutrophils # (Auto) 1.6 x10^3uL (1.8-7.7) L Lymphocytes # (Auto) 2.0 x10^3/uL (1.0-4.8) Monocytes # (Auto) 0.4 x10^3/uL (0.0-1.1) Eosinophils # (Auto) 0.0 x10^3/uL (0.0-0.7) Basophils # (Auto) 0.0 x10^3/uL (0.0-0.2) EKG EKG Interpreted by me: Heart rate 62, sinus rhythm, normal intervals, normal axis, no acute ST/T wave abnormalities present [] Radiology/Procedures Radiology/[place] [address] IMAGING REPORT Signed PATIENT: KRISTI TAVERAS ACCOUNT: [id number] : 1980 LOCATION: ER AGE: 41 SEX: F EXAM STATUS: REG ER ORD. PHYSICIAN: MART LOW MD REASON: dizziness, palpitations PROCEDURE: PORTABLE CHEST 1V EXAM: Chest, single view. HISTORY: Dizziness. Palpitations. COMPARISON: 02/28/2021 FINDINGS: A frontal view of the chest is obtained. There is no infiltrate, ple ural effusion or pneumothorax. The heart is normal in size. IMPRESSION: No acute pulmonary finding. Electronically signed by: Shi Joyner MD (08/02/2021 11:38 AM) [id number] DICTATED AND SIGNED BY: SHI JOYNER MD DATE: 08/02/21 1137 CC: MART LOW MD; BEATRIS KING DO ~ [] Heart Score C/O Chest Pain: No Risk Factors: Risk Factors: DM, Current or recent (<one month) smoker, HTN, HLP, family history of CAD, obesity. Risk Scores: Risk Factors: DM, Current or recent (<one month) smoker, HTN, HLP, family hi story of CAD, obesity. Course & Med Decision Making Course & Med Decision Making Pertinent Labs and Imaging studies reviewed. (See chart for details) Patient was given IV fluids in the emergency department. Patient's lab work was reviewed and largely unremarkable. EKG shows no acute dysrhythmia. Patient kept on continuous cardiac monitoring with no captured dysrhythmia or other abnormality. The patient's condition at this time appears stable. I have recommended outpatient follow-up with cardiology services to further evaluate for possible cardiac dysrhythmia as cause of lightheadedness and dizziness. Recommend continued rest and oral hydration at home and recommend return to the emergency department for any worsening symptoms. Patient voiced understanding and in agreement with treatment plan. [] Dragon Disclaimer Dragon Disclaimer This electronic medical record was generated, in whole or in part, using a voice recognition dictation system. Departure Departure: Impression: Primary Impression: Near syncope Disposition: HOME / SELF CARE / HOMELESS Condition: STABLE Referrals: BEATRIS KING DO (PCP) YUSUF HURTADO MD Patient Instructions: Near-Syncope Additional Instructions: Follow-up with Dr. Hurtado of cardiology services for reevaluation. Return to the emergency department for any worsening symptoms. MART LOW MD August 02, 2021 11:50
[2021-08-02 11:55] LABS: BACTERIA,URINE 0 /HPF (0-FEW); CLARITY,URINE CLEAR; COLOR,URINE YELLOW; GLUCOSE,URINE NEG (NEG); NITRITE,URINE NEG (NEG); RBC,URINE 0 /HPF (0-2); SQUAMOUS EPITHELIAL CELL,UR OCC /LPF; UROBILINOGEN,URINE 0.2 mg/dL (0.2 mg/dL); WBC,URINE OCC /HPF (0-4)
[2021-08-02 12:06] LABS: ALBUMIN 3.8 g/dL (3.4-5.0); ALBUMIN/GLOBULIN RATIO 1.2 (1.0-1.7); CALCIUM 9.5 mg/dL (8.5-10.1); CREATININE 0.7 mg/dL (0.6-1.0); GFR 92.2; TOTAL BILIRUBIN 0.4 mg/dL (0.2-1.0)
[2021-08-02 13:21] VITALS: BP 99/74
== END 2021-08-02 13:47 | disposition home or self-care (01) ==
LOC: ER 10:26
DX: R55 Syncope and collapse (principal); J45.909 Unspecified asthma, uncomplicated; Z20.822 Contact with and (suspected) exposure to COVID-19; Z88.6 Allergy status to analgesic agent; Z91.013 Allergy to seafood; Z88.8 Allergy status to other drugs, medicaments and biological substances
CPT/HCPCS: 36415; 71045; 80053; 81001; 81025; 83735; 85025; 87426; 93005; 96360; 96361; 99285; C9803; J7030; U0003